=== PATIENT | male | born 1955 | race Caucasian/White ===

== ENCOUNTER 2019-08-06 12:07 | Inpatient (IN) | payer OTHER ==
[~2019-08-06] VITALS: Ht 182.9 cm; Wt 73.0 kg
[~2019-08-06 12:07] MED LIST: APIX5TAB PO; DOCU-342 PO; DULO30CA2 PO; FLUT16H NASAL; GABA-531 PO; LEVO50TA11 PO; MULT-1239 PO; OMEP20 PO; POLY17PO PO
[2019-08-06 12:10] VITALS: BP 127/71
[2019-08-06 16:00] VITALS: BP 127/71
[2019-08-06] MEDS ORDERED: PROCHLORPERAZINE MALEATE 10 MG TABLET PO PRN (16:00)
[2019-08-06] MEDS ORDERED: SIMETHICONE 80 MG CHEWABLE TABLET CHEW PRN (16:00)
[2019-08-06] MEDS ORDERED: OxyCODONE HCL 10 MG IR TABLET PO PRN (16:00)
[2019-08-06] MEDS ORDERED: MAGNESIUM HYDROXIDE SUSPENSION 30 ML UDCUP PO PRN (16:00)
[2019-08-06] MEDS ORDERED: ONDANSETRON HCL 4 MG TABLET PO PRN (16:00)
[2019-08-06] MEDS ORDERED: PHENOL 1.4% 177 ML SPRAY BOTTLE PO PRN (16:00)
[2019-08-06] MEDS ORDERED: LACTULOSE 20 GM/30 ML SOLUTION UDCUP PO PRN (16:00)
[2019-08-06] MEDS: MONTELUKAST SODIUM 10 MG TABLET PO SCH ×2 (17:00→19:05)
[2019-08-06] MEDS: SENNA 187 MG TABLET PO SCH (19:05)
[2019-08-06] MEDS: MORPHINE SULFATE 15 MG ER TABLET PO SCH ×2 (19:06→19:21)
[2019-08-06] MEDS: DOCUSATE SODIUM 250 MG CAPSULE PO SCH (19:06)
[2019-08-06] MEDS: APIXABAN 5 MG TABLET PO SCH (19:06)
[2019-08-06] MEDS: ALPRAZolam 0.5 MG TABLET PO PRN (21:16)
[2019-08-06 23:00] VITALS: BP 137/75
[2019-08-07] MEDS: LEVOTHYROXINE SODIUM 100 MCG TABLET PO SCH (05:30)
[2019-08-07 07:05] VITALS: BP 143/88
[2019-08-07] MEDS: POLYETHYLENE GLYCOL 3350 17 GM PACKET PO SCH (08:18)
[2019-08-07] MEDS: FLUTICASONE PROPIONATE 50 MCG/SPRAY 16 GM NASAL SPRAY NASAL SCH (08:18)
[2019-08-07] MEDS: DOCUSATE SODIUM 250 MG CAPSULE PO SCH ×2 (08:18→19:59)
[2019-08-07] MEDS: LANSOPRAZOLE 30 MG SOLUBLE TABLET PO SCH (08:19)
[2019-08-07] MEDS: MORPHINE SULFATE 15 MG ER TABLET PO SCH ×2 (08:19→19:59)
[2019-08-07] MEDS: APIXABAN 5 MG TABLET PO SCH ×2 (08:19→20:00)
[2019-08-07] MEDS: SENNA 187 MG TABLET PO SCH ×2 (08:20→19:59)
[2019-08-07] MEDS: MULTIVITAMINS WITH MINERALS, THERAPEUTIC TABLET PO SCH (08:20)
[2019-08-07] MEDS: DULoxetine HCL 30 MG CAPSULE PO SCH (08:22)
[2019-08-07] MEDS: CHOLECALCIFEROL (VIT D3) 2,000 UNITS TABLET PO SCH (08:23)
[2019-08-07 08:43] LABS: BASOPHILS % (AUTO) 0.7 % (0.0-2.0); HEMATOCRIT 33.3 % (41-53); HEMOGLOBIN 10.5 g/dL (13.5-17.5); LYMPHOCYTES # (AUTO) 0.8 K/uL (1.0-4.8); LYMPHOCYTES % (AUTO) 20.4 % (22.0-44.0); MEAN CORPUSCULAR HEMOGLOBIN 25.5 pg (26.0-34.0); MEAN CORPUSCULAR HGB CONC 31.6 G/dL (31.0-37.0); MEAN CORPUSCULAR VOLUME 81 fL (80-100); MONOCYTES # (AUTO) 0.3 K/uL (0.1-1.0); MONOCYTES % (AUTO) 8.4 % (2.0-9.0); NEUTROPHILS # (AUTO) 2.5 K/uL (1.8-7.7); NEUTROPHILS % (AUTO) 67.5 % (40.0-70.0); PLATELET COUNT (AUTO) 400 K/uL (150-450); RED BLOOD CELL COUNT(AUTO) 4.13 MIL/uL (4.50-5.90); RED CELL DISTRIBUTION WIDTH 21.8 % (11.5-14.5)
[2019-08-07 09:01] LABS: ALANINE AMINOTRANSFERASE 17 U/L (12-78); ALBUMIN 2.7 g/dL (3.4-5.0); ALKALINE PHOSPHATASE 97 U/L (46-116); ANION GAP 7 mmol/L (8-16); ASPARTATE AMINOTRANSFERASE 13 U/L (15-37); BILIRUBIN,TOTAL 0.3 mg/dL (0.1-1.0); CALCIUM, TOTAL 9.1 mg/dL (8.8-10.5); CARBON DIOXIDE 28 mmol/L (22-29); CHLORIDE 105 mmol/L (98-107); CREATININE 0.63 mg/dL (0.60-1.30); GLOMERULAR FILTR. RATE CALC > 60 mL/min (>60); GLUCOSE,RANDOM 129 mg/dL (70-110); POTASSIUM 3.2 mmol/L (3.5-5.1); SODIUM SERUM 140 mmol/L (136-145)
[2019-08-07 09:16] LABS: UREA NITROGEN, BLOOD 6 mg/dL (7-18)
[2019-08-07] MEDS ORDERED: POTASSIUM CHLORIDE 20 MEQ ER TABLET PO ONE (11:30)
[2019-08-07] MEDS: MONTELUKAST SODIUM 10 MG TABLET PO SCH (17:00)
[2019-08-07 17:13] VITALS: BP 140/89
[2019-08-07] MEDS: ALPRAZolam 0.5 MG TABLET PO PRN (20:00)
[2019-08-07 21:00] LABS: C.DIFF GDH ANTIGEN, Stool Negative (Negative); C.DIFF TOXINS A&B, Stool Negative (Negative)
[2019-08-08 01:15] VITALS: BP 126/86
[2019-08-08 08:00] VITALS: BP 147/98
[2019-08-08] MEDS: DULoxetine HCL 30 MG CAPSULE PO SCH (08:17)
[2019-08-08] MEDS: CHOLECALCIFEROL (VIT D3) 2,000 UNITS TABLET PO SCH (08:17)
[2019-08-08] MEDS: FLUTICASONE PROPIONATE 50 MCG/SPRAY 16 GM NASAL SPRAY NASAL SCH (08:17)
[2019-08-08] MEDS: MULTIVITAMINS WITH MINERALS, THERAPEUTIC TABLET PO SCH (08:17)
[2019-08-08] MEDS: APIXABAN 5 MG TABLET PO SCH ×2 (08:17→19:33)
[2019-08-08] MEDS: LEVOTHYROXINE SODIUM 100 MCG TABLET PO SCH (08:17)
[2019-08-08] MEDS: SENNA 187 MG TABLET PO SCH ×2 (08:18→19:32)
[2019-08-08] MEDS: POLYETHYLENE GLYCOL 3350 17 GM PACKET PO SCH (08:18)
[2019-08-08] MEDS: LANSOPRAZOLE 30 MG SOLUBLE TABLET PO SCH (08:18)
[2019-08-08] MEDS: DOCUSATE SODIUM 250 MG CAPSULE PO SCH ×2 (08:18→19:32)
[2019-08-08] MEDS: MORPHINE SULFATE 15 MG ER TABLET PO SCH ×2 (08:18→19:33)
[2019-08-08 15:45] VITALS: BP 128/78
[2019-08-08] MEDS: MONTELUKAST SODIUM 10 MG TABLET PO SCH (17:00)
[2019-08-08 19:30] VITALS: BP 116/72
[2019-08-08] MEDS: ALPRAZolam 0.5 MG TABLET PO PRN (19:31)
[2019-08-08 19:43] VITALS: BP 116/72
[2019-08-08 23:44] VITALS: BP 126/80
[2019-08-09] MEDS: LEVOTHYROXINE SODIUM 100 MCG TABLET PO SCH (06:13)
[2019-08-09] MEDS: POLYETHYLENE GLYCOL 3350 17 GM PACKET PO SCH (08:30)
[2019-08-09] MEDS: LANSOPRAZOLE 30 MG SOLUBLE TABLET PO SCH (08:30)
[2019-08-09] MEDS: FLUTICASONE PROPIONATE 50 MCG/SPRAY 16 GM NASAL SPRAY NASAL SCH (08:30)
[2019-08-09] MEDS: DULoxetine HCL 30 MG CAPSULE PO SCH (08:31)
[2019-08-09] MEDS: CHOLECALCIFEROL (VIT D3) 2,000 UNITS TABLET PO SCH (08:31)
[2019-08-09] MEDS: DOCUSATE SODIUM 250 MG CAPSULE PO SCH ×2 (08:31→19:16)
[2019-08-09] MEDS: SENNA 187 MG TABLET PO SCH ×2 (08:33→19:16)
[2019-08-09] MEDS: MULTIVITAMINS WITH MINERALS, THERAPEUTIC TABLET PO SCH (08:33)
[2019-08-09] MEDS: APIXABAN 5 MG TABLET PO SCH ×2 (08:33→19:16)
[2019-08-09] MEDS: MORPHINE SULFATE 15 MG ER TABLET PO SCH ×2 (08:33→19:17)
[2019-08-09 09:16] VITALS: BP 136/89
[2019-08-09 16:17] VITALS: BP 140/83
[2019-08-09] MEDS: MONTELUKAST SODIUM 10 MG TABLET PO SCH (16:53)
[2019-08-09] MEDS: TraZODone HCL 50 MG TABLET PO SCH (19:18)
[2019-08-09 23:28] VITALS: BP 121/71
[2019-08-10] MEDS: ALPRAZolam 0.5 MG TABLET PO PRN (00:39)
[2019-08-10] MEDS: LEVOTHYROXINE SODIUM 100 MCG TABLET PO SCH (06:11)
[2019-08-10] MEDS: LANSOPRAZOLE 30 MG SOLUBLE TABLET PO SCH (08:07)
[2019-08-10] MEDS: DOCUSATE SODIUM 250 MG CAPSULE PO SCH ×2 (08:07→21:02)
[2019-08-10] MEDS: POLYETHYLENE GLYCOL 3350 17 GM PACKET PO SCH (08:07)
[2019-08-10] MEDS: DULoxetine HCL 30 MG CAPSULE PO SCH (08:08)
[2019-08-10] MEDS: CHOLECALCIFEROL (VIT D3) 2,000 UNITS TABLET PO SCH (08:08)
[2019-08-10] MEDS: SENNA 187 MG TABLET PO SCH (08:08)
[2019-08-10] MEDS: MULTIVITAMINS WITH MINERALS, THERAPEUTIC TABLET PO SCH (08:08)
[2019-08-10] MEDS: FLUTICASONE PROPIONATE 50 MCG/SPRAY 16 GM NASAL SPRAY NASAL SCH (08:08)
[2019-08-10] MEDS: MORPHINE SULFATE 15 MG ER TABLET PO SCH ×2 (08:08→21:00)
[2019-08-10] MEDS: APIXABAN 5 MG TABLET PO SCH ×2 (08:08→21:02)
[2019-08-10 08:36] VITALS: BP 106/75
[2019-08-10] MEDS ORDERED: SENNA 187 MG TABLET PO PRN (08:45)
[2019-08-10 16:06] VITALS: BP 132/82
[2019-08-10] MEDS: TraZODone HCL 50 MG TABLET PO SCH (21:02)
[2019-08-10] MEDS ORDERED: SENN8.6T20 PO (21:31)
[2019-08-10] MEDS ORDERED: CYCL10 PO (21:31)
[2019-08-10] MEDS ORDERED: PERCT PO (21:31)
[2019-08-10] MEDS ORDERED: CHOL100018 PO (21:31)
[2019-08-10 23:24] VITALS: BP 115/73
[2019-08-11] MEDS: ACETAMINOPHEN 325 MG TABLET PO PRN ×2 (00:37→14:17)
[2019-08-11] MEDS: LEVOTHYROXINE SODIUM 100 MCG TABLET PO SCH (08:29)
[2019-08-11 08:47] VITALS: BP 121/66
[2019-08-11] MEDS: LANSOPRAZOLE 30 MG SOLUBLE TABLET PO SCH ×2 (09:00→09:28)
[2019-08-11] MEDS: MULTIVITAMINS WITH MINERALS, THERAPEUTIC TABLET PO SCH (09:27)
[2019-08-11] MEDS: DOCUSATE SODIUM 250 MG CAPSULE PO SCH ×2 (09:27→20:06)
[2019-08-11] MEDS: FLUTICASONE PROPIONATE 50 MCG/SPRAY 16 GM NASAL SPRAY NASAL SCH (09:27)
[2019-08-11] MEDS: APIXABAN 5 MG TABLET PO SCH ×2 (09:28→20:06)
[2019-08-11] MEDS: DULoxetine HCL 30 MG CAPSULE PO SCH (09:28)
[2019-08-11] MEDS: CHOLECALCIFEROL (VIT D3) 2,000 UNITS TABLET PO SCH (09:28)
[2019-08-11] MEDS ORDERED: LEVO100 PO (12:10)
[2019-08-11 15:36] VITALS: BP 116/83
[2019-08-11] MEDS: CYCLOBENZAPRINE HCL 10 MG TABLET PO PRN (20:09)
[2019-08-11] MEDS: TraZODone HCL 50 MG TABLET PO SCH (20:09)
[2019-08-11 23:49] VITALS: BP 123/73
[2019-08-12] MEDS: LEVOTHYROXINE SODIUM 100 MCG TABLET PO SCH (05:09)
[2019-08-12] MEDS: BISACODYL 10 MG RECTAL RECTAL SUPPOSITORY PR PRN (05:23)
[2019-08-12 07:45] VITALS: BP 153/88
[2019-08-12] MEDS: MULTIVITAMINS WITH MINERALS, THERAPEUTIC TABLET PO SCH (09:58)
[2019-08-12] MEDS: POLYETHYLENE GLYCOL 3350 17 GM PACKET PO PRN ×2 (09:58→19:46)
[2019-08-12] MEDS: APIXABAN 5 MG TABLET PO SCH ×2 (09:58→19:42)
[2019-08-12] MEDS: LANSOPRAZOLE 30 MG SOLUBLE TABLET PO SCH (09:58)
[2019-08-12] MEDS: DULoxetine HCL 30 MG CAPSULE PO SCH (09:59)
[2019-08-12] MEDS: DOCUSATE SODIUM 250 MG CAPSULE PO SCH ×2 (09:59→19:42)
[2019-08-12] MEDS: CHOLECALCIFEROL (VIT D3) 2,000 UNITS TABLET PO SCH (09:59)
[2019-08-12] MEDS: FLUTICASONE PROPIONATE 50 MCG/SPRAY 16 GM NASAL SPRAY NASAL SCH (09:59)
[2019-08-12 15:30] VITALS: BP 139/78
[2019-08-12] MEDS: CYCLOBENZAPRINE HCL 10 MG TABLET PO PRN (19:42)
[2019-08-12] MEDS ORDERED: TraZODone HCL 50 MG TABLET PO PRN (21:00)
[2019-08-12] MEDS: LORazepam 1 MG TABLET PO PRN (23:00)
[2019-08-12 23:36] VITALS: BP 136/82
[2019-08-13] MEDS: BISACODYL 10 MG RECTAL RECTAL SUPPOSITORY PR PRN (04:41)
[2019-08-13] MEDS: LEVOTHYROXINE SODIUM 100 MCG TABLET PO SCH (06:50)
[2019-08-13 07:15] VITALS: BP 129/68
[2019-08-13] MEDS: APIXABAN 5 MG TABLET PO SCH ×2 (09:28→19:38)
[2019-08-13] MEDS: DOCUSATE SODIUM 250 MG CAPSULE PO SCH ×2 (09:28→19:38)
[2019-08-13] MEDS: DULoxetine HCL 30 MG CAPSULE PO SCH (09:28)
[2019-08-13] MEDS: LANSOPRAZOLE 30 MG SOLUBLE TABLET PO SCH (09:28)
[2019-08-13] MEDS: MULTIVITAMINS WITH MINERALS, THERAPEUTIC TABLET PO SCH (09:28)
[2019-08-13] MEDS: CHOLECALCIFEROL (VIT D3) 2,000 UNITS TABLET PO SCH (09:28)
[2019-08-13] MEDS: FLUTICASONE PROPIONATE 50 MCG/SPRAY 16 GM NASAL SPRAY NASAL SCH (09:28)
[2019-08-13 16:00] VITALS: BP 135/85
[2019-08-13] MEDS: CYCLOBENZAPRINE HCL 10 MG TABLET PO PRN (19:48)
[2019-08-13] MEDS: LORazepam 1 MG TABLET PO PRN (20:41)
[2019-08-14 00:52] VITALS: BP 108/68
[2019-08-14] MEDS: LEVOTHYROXINE SODIUM 100 MCG TABLET PO SCH (05:02)
[2019-08-14 07:45] VITALS: BP 132/86
[2019-08-14] MEDS: DOCUSATE SODIUM 250 MG CAPSULE PO SCH ×2 (09:39→19:41)
[2019-08-14] MEDS: APIXABAN 5 MG TABLET PO SCH ×2 (09:39→19:41)
[2019-08-14] MEDS: LANSOPRAZOLE 30 MG SOLUBLE TABLET PO SCH (09:39)
[2019-08-14] MEDS: FLUTICASONE PROPIONATE 50 MCG/SPRAY 16 GM NASAL SPRAY NASAL SCH (09:40)
[2019-08-14] MEDS: DULoxetine HCL 30 MG CAPSULE PO SCH (09:40)
[2019-08-14] MEDS: MULTIVITAMINS WITH MINERALS, THERAPEUTIC TABLET PO SCH (09:40)
[2019-08-14] MEDS: CHOLECALCIFEROL (VIT D3) 2,000 UNITS TABLET PO SCH (09:40)
[2019-08-14 16:13] VITALS: BP 114/77
[2019-08-14] MEDS: CYCLOBENZAPRINE HCL 10 MG TABLET PO PRN (19:41)
[2019-08-14] MEDS: LORazepam 1 MG TABLET PO PRN (20:51)
[2019-08-15] VITALS: BP 135/80
[2019-08-15] MEDS: LEVOTHYROXINE SODIUM 100 MCG TABLET PO SCH (06:26)
[2019-08-15 10:33] VITALS: BP 122/71
[2019-08-15] MEDS: DULoxetine HCL 30 MG CAPSULE PO SCH (11:56)
[2019-08-15] MEDS: APIXABAN 5 MG TABLET PO SCH ×2 (11:56→20:17)
[2019-08-15] MEDS: DOCUSATE SODIUM 250 MG CAPSULE PO SCH ×2 (11:56→20:17)
[2019-08-15] MEDS: CHOLECALCIFEROL (VIT D3) 2,000 UNITS TABLET PO SCH (11:56)
[2019-08-15] MEDS: LANSOPRAZOLE 30 MG SOLUBLE TABLET PO SCH (11:56)
[2019-08-15] MEDS: FLUTICASONE PROPIONATE 50 MCG/SPRAY 16 GM NASAL SPRAY NASAL SCH (11:56)
[2019-08-15] MEDS: MULTIVITAMINS WITH MINERALS, THERAPEUTIC TABLET PO SCH (11:56)
[2019-08-15 17:09] VITALS: BP 139/66
[2019-08-15] MEDS: CYCLOBENZAPRINE HCL 10 MG TABLET PO PRN (20:18)
[2019-08-15] MEDS: LORazepam 1 MG TABLET PO PRN (21:34)
[2019-08-15 23:15] VITALS: BP 119/71
[2019-08-16] MEDS: LEVOTHYROXINE SODIUM 100 MCG TABLET PO SCH (05:39)
[2019-08-16 07:55] VITALS: BP 129/83
[2019-08-16] MEDS: APIXABAN 5 MG TABLET PO SCH ×2 (12:44→19:28)
[2019-08-16] MEDS: FLUTICASONE PROPIONATE 50 MCG/SPRAY 16 GM NASAL SPRAY NASAL SCH (12:44)
[2019-08-16] MEDS: DULoxetine HCL 30 MG CAPSULE PO SCH (12:45)
[2019-08-16] MEDS: LANSOPRAZOLE 30 MG SOLUBLE TABLET PO SCH (12:45)
[2019-08-16] MEDS: CHOLECALCIFEROL (VIT D3) 2,000 UNITS TABLET PO SCH (12:45)
[2019-08-16] MEDS: MULTIVITAMINS WITH MINERALS, THERAPEUTIC TABLET PO SCH (12:45)
[2019-08-16] MEDS: DOCUSATE SODIUM 250 MG CAPSULE PO SCH ×2 (12:45→19:28)
[2019-08-16 16:00] VITALS: BP 114/68
[2019-08-16] MEDS: CYCLOBENZAPRINE HCL 10 MG TABLET PO PRN (19:28)
[2019-08-16] MEDS: LORazepam 1 MG TABLET PO PRN (20:27)
[2019-08-17 00:15] VITALS: BP 118/67
[2019-08-17] MEDS: BISACODYL 10 MG RECTAL RECTAL SUPPOSITORY PR PRN (03:40)
[2019-08-17] MEDS: SODIUM PHOS/SODIUM BIPHOS 133 ML ENEMA PR PRN (04:43)
[2019-08-17] MEDS: LEVOTHYROXINE SODIUM 100 MCG TABLET PO SCH (05:08)
[2019-08-17] MEDS: LANSOPRAZOLE 30 MG SOLUBLE TABLET PO SCH ×2 (09:00→10:04)
[2019-08-17 09:27] VITALS: BP 138/80
[2019-08-17] MEDS: FLUTICASONE PROPIONATE 50 MCG/SPRAY 16 GM NASAL SPRAY NASAL SCH (10:03)
[2019-08-17] MEDS: DOCUSATE SODIUM 250 MG CAPSULE PO SCH ×2 (10:03→21:26)
[2019-08-17] MEDS: MULTIVITAMINS WITH MINERALS, THERAPEUTIC TABLET PO SCH (10:03)
[2019-08-17] MEDS: CHOLECALCIFEROL (VIT D3) 2,000 UNITS TABLET PO SCH (10:03)
[2019-08-17] MEDS: APIXABAN 5 MG TABLET PO SCH ×2 (10:03→21:26)
[2019-08-17] MEDS: DULoxetine HCL 30 MG CAPSULE PO SCH (10:03)
[2019-08-17] MEDS: ACETAMINOPHEN 325 MG TABLET PO PRN (13:37)
[2019-08-17 16:30] VITALS: BP 119/70
[2019-08-17] MEDS: CYCLOBENZAPRINE HCL 10 MG TABLET PO PRN (21:26)
[2019-08-17] MEDS: LORazepam 1 MG TABLET PO PRN (21:26)
[2019-08-17 23:36] VITALS: BP 110/60
[2019-08-18] MEDS: LEVOTHYROXINE SODIUM 100 MCG TABLET PO SCH (06:50)
[2019-08-18 08:52] VITALS: BP 124/69
[2019-08-18] MEDS: LANSOPRAZOLE 30 MG SOLUBLE TABLET PO SCH (09:59)
[2019-08-18] MEDS: DULoxetine HCL 30 MG CAPSULE PO SCH (09:59)
[2019-08-18] MEDS: APIXABAN 5 MG TABLET PO SCH ×2 (09:59→20:19)
[2019-08-18] MEDS: FLUTICASONE PROPIONATE 50 MCG/SPRAY 16 GM NASAL SPRAY NASAL SCH (09:59)
[2019-08-18] MEDS: DOCUSATE SODIUM 250 MG CAPSULE PO SCH ×2 (09:59→20:19)
[2019-08-18] MEDS: MULTIVITAMINS WITH MINERALS, THERAPEUTIC TABLET PO SCH (09:59)
[2019-08-18] MEDS: CHOLECALCIFEROL (VIT D3) 2,000 UNITS TABLET PO SCH (09:59)
[2019-08-18 15:00] VITALS: BP 118/73
[2019-08-18] MEDS: CYCLOBENZAPRINE HCL 10 MG TABLET PO PRN (20:19)
[2019-08-18] MEDS: LORazepam 1 MG TABLET PO PRN (20:19)
[2019-08-19] VITALS: BP 96/55
[2019-08-19] MEDS ORDERED: FLUT16H NASAL (00:40)
[2019-08-19] MEDS ORDERED: LANS30TA4 PO (00:40)
[2019-08-19] MEDS ORDERED: LORA-1000 PO (00:41)
[2019-08-19] MEDS: LEVOTHYROXINE SODIUM 100 MCG TABLET PO SCH (05:04)
[2019-08-19 08:15] VITALS: BP 103/65
[2019-08-19] MEDS: APIXABAN 5 MG TABLET PO SCH ×2 (10:40→19:58)
[2019-08-19] MEDS: DULoxetine HCL 30 MG CAPSULE PO SCH (10:40)
[2019-08-19] MEDS: LANSOPRAZOLE 30 MG SOLUBLE TABLET PO SCH (10:40)
[2019-08-19] MEDS: CHOLECALCIFEROL (VIT D3) 2,000 UNITS TABLET PO SCH (10:40)
[2019-08-19] MEDS: FLUTICASONE PROPIONATE 50 MCG/SPRAY 16 GM NASAL SPRAY NASAL SCH (10:40)
[2019-08-19] MEDS: DOCUSATE SODIUM 250 MG CAPSULE PO SCH ×2 (10:40→19:58)
[2019-08-19] MEDS: MULTIVITAMINS WITH MINERALS, THERAPEUTIC TABLET PO SCH (10:40)
[2019-08-19 15:39] VITALS: BP 122/76
[2019-08-19] MEDS: ACETAMINOPHEN 325 MG TABLET PO PRN (15:39)
[2019-08-19] MEDS: BISACODYL 10 MG RECTAL RECTAL SUPPOSITORY PR PRN (18:21)
[2019-08-19] MEDS: CYCLOBENZAPRINE HCL 10 MG TABLET PO PRN (19:58)
[2019-08-19] MEDS: LORazepam 1 MG TABLET PO PRN (21:40)
[2019-08-20 00:30] VITALS: BP 121/72
[2019-08-20] MEDS: LEVOTHYROXINE SODIUM 100 MCG TABLET PO SCH (06:38)
[2019-08-20 08:00] VITALS: BP 125/81
[2019-08-20] MEDS: LANSOPRAZOLE 30 MG SOLUBLE TABLET PO SCH ×2 (09:00→09:06)
[2019-08-20] MEDS: MULTIVITAMINS WITH MINERALS, THERAPEUTIC TABLET PO SCH ×2 (09:00→09:07)
[2019-08-20] MEDS: APIXABAN 5 MG TABLET PO SCH ×2 (09:06→20:27)
[2019-08-20] MEDS: CHOLECALCIFEROL (VIT D3) 2,000 UNITS TABLET PO SCH (09:07)
[2019-08-20] MEDS: FLUTICASONE PROPIONATE 50 MCG/SPRAY 16 GM NASAL SPRAY NASAL SCH (09:07)
[2019-08-20] MEDS: DOCUSATE SODIUM 250 MG CAPSULE PO SCH ×2 (09:07→20:27)
[2019-08-20] MEDS: POLYETHYLENE GLYCOL 3350 17 GM PACKET PO PRN ×2 (09:07→20:36)
[2019-08-20] MEDS: DULoxetine HCL 30 MG CAPSULE PO SCH (09:07)
[2019-08-20] MEDS: ACETAMINOPHEN 325 MG TABLET PO PRN (09:49)
[2019-08-20 16:34] VITALS: BP 133/81
[2019-08-20] MEDS: CYCLOBENZAPRINE HCL 10 MG TABLET PO PRN (20:27)
[2019-08-20] MEDS: LORazepam 1 MG TABLET PO PRN (22:20)
[2019-08-20] MEDS ORDERED: CYCL10 PO (23:59)
[2019-08-21 02:50] VITALS: BP 123/60
[2019-08-21] MEDS: SODIUM PHOS/SODIUM BIPHOS 133 ML ENEMA PR PRN (06:18)
[2019-08-21] MEDS: LEVOTHYROXINE SODIUM 100 MCG TABLET PO SCH (06:18)
[2019-08-21 08:00] VITALS: BP 131/82
[2019-08-21] MEDS: FLUTICASONE PROPIONATE 50 MCG/SPRAY 16 GM NASAL SPRAY NASAL SCH (09:33)
[2019-08-21] MEDS: CHOLECALCIFEROL (VIT D3) 2,000 UNITS TABLET PO SCH (09:36)
[2019-08-21] MEDS: DOCUSATE SODIUM 250 MG CAPSULE PO SCH (09:36)
[2019-08-21] MEDS: APIXABAN 5 MG TABLET PO SCH (09:36)
[2019-08-21] MEDS: DULoxetine HCL 30 MG CAPSULE PO SCH (09:37)
[2019-08-21] MEDS: MULTIVITAMINS WITH MINERALS, THERAPEUTIC TABLET PO SCH (09:37)
[2019-08-21] MEDS: LANSOPRAZOLE 30 MG SOLUBLE TABLET PO SCH (09:37)
[2019-08-21] MEDS ORDERED: DOCU-342 PO (10:53)
[2019-08-21] MEDS ORDERED: APIX5TAB PO (10:54)
[2019-08-21] MEDS ORDERED: LEVO100 PO (10:54)
[2019-08-21] MEDS ORDERED: FLUT16H NASAL (10:55)
[2019-08-21] MEDS ORDERED: DULO30CA2 PO (10:55)
[2019-08-21] MEDS ORDERED: MULT-1239 PO (10:57)
[2019-08-21] MEDS ORDERED: LANS30TA4 PO (10:57)
[2019-08-21] MEDS ORDERED: CYCL10 PO (10:57)
[2019-08-21] MEDS ORDERED: CHOL100018 PO (10:58)
== END 2019-08-21 12:45 | disposition home or self-care (01) | DRG 41 ==
LOC: 2WR 12:07
PROVIDERS: ATTEND Physical Medicine & Rehabilitation
DX: C72.0 Malignant neoplasm of spinal cord (principal); C79.51 Secondary malignant neoplasm of bone; C49.21 Malignant neoplasm of connective and soft tissue of right lower limb, including hip; E46 Unspecified protein-calorie malnutrition; G82.20 Paraplegia, unspecified; D49.2 Neoplasm of unspecified behavior of bone, soft tissue, and skin; D64.9 Anemia, unspecified; E03.9 Hypothyroidism, unspecified; E55.9 Vitamin D deficiency, unspecified; F32.9 Major depressive disorder, single episode, unspecified; F41.9 Anxiety disorder, unspecified; G47.00 Insomnia, unspecified; E87.6 Hypokalemia; K59.03 Drug induced constipation; M62.838 Other muscle spasm; T40.2X5A Adverse effect of other opioids, initial encounter; Z79.899 Other long term (current) drug therapy; Z85.46 Personal history of malignant neoplasm of prostate; Z98.1 Arthrodesis status; Z80.7 Family history of other malignant neoplasms of lymphoid, hematopoietic and related tissues; Z80.8 Family history of malignant neoplasm of other organs or systems; Z68.21 Body mass index [BMI] 21.0-21.9, adult
CPT/HCPCS: 84132; 87081; 87324; 87449; 97110; 97112; 97116; 97140; 97163; 97167; 97530; 97535; 99366